=== PATIENT | female | born 1955 | race Caucasian/White ===

== ENCOUNTER 2020-06-17 19:24 | Inpatient (IN) | payer MEDICARE, OTHER ==
[~2020-06-17] VITALS: Ht 165.1 cm; Wt 59.0 kg
[2020-06-17 19:58] LABS: BASOPHILS % (AUTO) 0.3 % (0.0-2.0); EOSINOPHILS % (AUTO) 0.6 % (0.0-7.0); HEMATOCRIT 43.9 % (31.2-41.9); LYMPHOCYTES # (AUTO) 1.5 K/uL (20.0-40.0); LYMPHOCYTES % (AUTO) 22.8 % (20.5-51.5); MEAN CORPUSCULAR HGB CONC 34 g/dL (32.3-35.6); MEAN CORPUSCULAR VOLUME 96.2 fL (75.5-95.3); MONOCYTES # (AUTO) 0.7 K/uL (2.0-10.0); MONOCYTES % (AUTO) 10.1 % (0.0-11.0); NEUTROPHILS # (AUTO) 4.4 K/uL (1.8-8.9); NEUTROPHILS % (AUTO) 66.2 % (38.5-71.5); PLATELET COUNT (AUTO) 357 K/uL (179-408); RED BLOOD CELL COUNT(AUTO) 4.56 MIL/uL (3.63-4.92); WHITE BLOOD COUNT (AUTO) 6.7 K/uL (3.8-11.8)
[2020-06-17 20:08] LABS: *BILIRUBIN,URIN NEGATIVE (NEGATIVE); *CLARITY,URINE CLEAR (CLEAR); *COLOR,URINE YELLOW (YELLOW); *KETONES,URINE NEGATIVE (NEGATIVE); *UROBILINOGEN,URINE 0.2 E.U./dl (NORMAL); LEUKOCYTE ESTERASE ,URINE 1+ (NEGATIVE); NITRITE, URINE NEGATIVE (NEGATIVE); UGLUCOSE NEGATIVE (NEGATIVE)
[2020-06-17 20:10] LABS: ETHANOL < 3 MG/DL (0-0)
[2020-06-17 20:13] LABS: ALANINE AMINOTRANSFERASE 28 U/L (14-59); ALKALINE PHOSPHATASE 78 U/L (50-136); ASPARTATE AMINOTRANSFERASE 17 U/L (15-37); BILIRUBIN,DIRECT 0.2 mg/dL (0.0-0.2); BILIRUBIN,TOTAL 0.6 mg/dL (0.2-1.0); CARBON DIOXIDE 28 mmol/L (21-32); CHLORIDE 101 mmol/L (98-107); CREATININE 0.8 mg/dL (0.6-1.3); GLUCOSE 101 mg/dL (74-106); POTASSIUM 3.8 mmol/L (3.5-5.1); TOTAL PROTEIN, SERUM 7.4 g/dL (6.4-8.2); UREA NITROGEN, BLOOD 14 mg/dL (7-18)
[2020-06-17] MEDS ORDERED: SERT50TA PO (20:15)
[2020-06-17] MEDS ORDERED: LISI-607 PO (20:15)
[2020-06-17] MEDS ORDERED: LURA40TA PO (20:15)
[2020-06-17] MEDS ORDERED: ATOR20TA PO (20:15)
[2020-06-17 20:20] LABS: ACETAMINOPHEN < 2.0 ug/mL (10-30)
[2020-06-17 20:23] LABS: *BLOOD, URINE TRACE INTACT (NEGATIVE)
[2020-06-17] MEDS ORDERED: CLONIDINE HCL 0.1 MG TABLET ONE (20:28)
[2020-06-17 20:30] LABS: *AMPHETAMINE, URINE NEGATIVE (NEGATIVE); *CANNABINOID, URINE NEGATIVE (NEGATIVE); *COCCAINE, URINE NEGATIVE (NEGATIVE); *OPIATE, URINE NEGATIVE (NEGATIVE); *PHENCYCLIDINE SCREEN,URINE NEGATIVE (NEGATIVE)
[2020-06-17] MEDS ORDERED: CLONIDINE HCL 0.1 MG TABLET PO ONE (20:30)
[2020-06-17 20:41] LABS: THYROID STIMULATING HORMONE 3.408 mIU/mL (0.358-3.740)
[2020-06-17] MEDS ORDERED: TEMAZEPAM 7.5 MG CAPSULE PO PRN (21:30)
[2020-06-17] MEDS ORDERED: BLOOD SUGAR DIAGNOSTIC 1 EACH STRIP VI ONE (21:30)
[2020-06-17] MEDS ORDERED: MAGNESIUM HYDROXIDE 30 ML LIQUID UDC PO PRN (21:30)
[2020-06-17] MEDS ORDERED: ACETAMINOPHEN 325 MG TABLET PO PRN (21:30)
[2020-06-17] MEDS ORDERED: MAG HYDROX/AL HYDROX/SIMETH 30 ML LIQUID UDC PO PRN (21:30)
[2020-06-17 21:39] VITALS: BP 155/84
[2020-06-17 22:00] LABS: BACTERIA,URINE MANY /HPF (NONE SEEN); SQUAMOUS EPITHELIAL CELL,UR FEW /HPF (NONE SEEN)
[2020-06-17] MEDS ORDERED: hydrALAZINE HCL 25 MG TABLET PO PRN (22:30)
[2020-06-17] MEDS: LORAZEPAM 1 MG TABLET PO PRN (22:32)
[2020-06-17] MEDS: METOPROLOL TARTRATE 25 MG TABLET PO SCH (23:32)
[2020-06-18 07:30] VITALS: BP 106/59
[2020-06-18 08:03] LABS: BASOPHILS % (AUTO) 0.8 % (0.0-2.0); EOSINOPHILS # (AUTO) 0.1 K/uL (0.0-0.7); EOSINOPHILS % (AUTO) 1.7 % (0.0-7.0); HEMATOCRIT 38.4 % (31.2-41.9); HEMOGLOBIN 13.2 g/dL (10.9-14.3); LYMPHOCYTES # (AUTO) 1.6 K/uL (20.0-40.0); LYMPHOCYTES % (AUTO) 28.6 % (20.5-51.5); MEAN CORPUSCULAR HEMOGLOBIN 33.1 uug (24.7-32.8); MEAN CORPUSCULAR HGB CONC 34 g/dL (32.3-35.6); MEAN CORPUSCULAR VOLUME 96.4 fL (75.5-95.3); MONOCYTES # (AUTO) 0.7 K/uL (2.0-10.0); MONOCYTES % (AUTO) 12.5 % (0.0-11.0); NEUTROPHILS # (AUTO) 3.2 K/uL (1.8-8.9); NEUTROPHILS % (AUTO) 56.4 % (38.5-71.5); PLATELET COUNT (AUTO) 308 K/uL (179-408); RED BLOOD CELL COUNT(AUTO) 3.99 MIL/uL (3.63-4.92); WHITE BLOOD COUNT (AUTO) 5.7 K/uL (3.8-11.8)
[2020-06-18 08:06] LABS: BILIRUBIN,TOTAL 0.6 mg/dL (0.2-1.0); CREATININE 0.9 mg/dL (0.6-1.3); MAGNESIUM 1.9 mg/dL (1.8-2.4); PHOSPHOROUS 3.6 mg/dL (2.5-4.9)
[2020-06-18] MEDS: NITROFURANTOIN/NITROFURAN MAC 100 MG CAPSULE PO SCH ×2 (08:30→20:18)
[2020-06-18] MEDS: METOPROLOL TARTRATE 25 MG TABLET PO SCH ×2 (08:31→20:18)
[2020-06-18] MEDS: LISINOPRIL 5 MG TABLET PO SCH (08:31)
[2020-06-18 16:00] VITALS: BP 125/66
[2020-06-18 20:00] VITALS: BP 117/67
[2020-06-18] MEDS: ATORVASTATIN 20 MG TABLET PO SCH (20:17)
[2020-06-18] MEDS: LORAZEPAM 1 MG TABLET PO PRN (21:55)
[2020-06-19 07:30] VITALS: BP 133/74
[2020-06-19] MEDS: LISINOPRIL 5 MG TABLET PO SCH (08:19)
[2020-06-19] MEDS: NITROFURANTOIN/NITROFURAN MAC 100 MG CAPSULE PO SCH ×2 (08:19→20:32)
[2020-06-19] MEDS: METOPROLOL TARTRATE 25 MG TABLET PO SCH ×2 (08:19→20:35)
[2020-06-19] MEDS: risperiDONE 1 MG TABLET PO SCH ×2 (08:19→20:32)
[2020-06-19 15:20] VITALS: BP 110/61
[2020-06-19 20:00] VITALS: BP 115/56
[2020-06-19] MEDS: ATORVASTATIN 20 MG TABLET PO SCH (20:28)
[2020-06-19] MEDS: MIRTAZAPINE 15 MG TABLET PO SCH (20:32)
[2020-06-19 20:36] VITALS: BP 120/69
[2020-06-20 07:30] VITALS: BP 118/62
[2020-06-20] MEDS: risperiDONE 1 MG TABLET PO SCH ×2 (08:28→21:00)
[2020-06-20] MEDS: NITROFURANTOIN/NITROFURAN MAC 100 MG CAPSULE PO SCH ×2 (08:28→20:14)
[2020-06-20] MEDS: METOPROLOL TARTRATE 25 MG TABLET PO SCH ×2 (08:29→20:15)
[2020-06-20] MEDS: LISINOPRIL 5 MG TABLET PO SCH (08:29)
[2020-06-20 16:00] VITALS: BP 133/75
[2020-06-20 20:00] VITALS: BP 115/63
[2020-06-20] MEDS: ATORVASTATIN 20 MG TABLET PO SCH (20:14)
[2020-06-20] MEDS: MIRTAZAPINE 15 MG TABLET PO SCH (21:00)
[2020-06-21 07:30] VITALS: BP 118/63
[2020-06-21] MEDS: NITROFURANTOIN/NITROFURAN MAC 100 MG CAPSULE PO SCH ×2 (08:20→20:15)
[2020-06-21] MEDS: risperiDONE 1 MG TABLET PO SCH ×2 (08:21→20:15)
[2020-06-21] MEDS: LISINOPRIL 5 MG TABLET PO SCH (08:21)
[2020-06-21] MEDS: METOPROLOL TARTRATE 25 MG TABLET PO SCH ×2 (08:23→20:15)
[2020-06-21 15:29] VITALS: BP 149/73
[2020-06-21 20:13] VITALS: BP 160/82
[2020-06-21] MEDS: TRAZODONE 50 MG TABLET PO SCH (20:15)
[2020-06-21] MEDS: ATORVASTATIN 20 MG TABLET PO SCH (20:15)
[2020-06-22 07:30] VITALS: BP 106/49
[2020-06-22] MEDS: NITROFURANTOIN/NITROFURAN MAC 100 MG CAPSULE PO SCH ×2 (08:21→20:33)
[2020-06-22] MEDS: risperiDONE 1 MG TABLET PO SCH ×2 (08:22→20:33)
[2020-06-22] MEDS: LISINOPRIL 5 MG TABLET PO SCH (08:23)
[2020-06-22] MEDS: METOPROLOL TARTRATE 25 MG TABLET PO SCH ×2 (08:23→20:35)
[2020-06-22 16:32] VITALS: BP 138/75
[2020-06-22 20:00] VITALS: BP 108/60
[2020-06-22] MEDS: TRAZODONE 50 MG TABLET PO SCH (20:33)
[2020-06-22] MEDS: ATORVASTATIN 20 MG TABLET PO SCH (20:33)
[2020-06-23 07:30] VITALS: BP 134/67
[2020-06-23] MEDS: NITROFURANTOIN/NITROFURAN MAC 100 MG CAPSULE PO SCH (08:12)
[2020-06-23] MEDS: METOPROLOL TARTRATE 25 MG TABLET PO SCH ×2 (08:12→21:52)
[2020-06-23] MEDS: risperiDONE 1 MG TABLET PO SCH ×2 (08:12→21:51)
[2020-06-23] MEDS: LISINOPRIL 5 MG TABLET PO SCH (08:13)
[2020-06-23 16:08] VITALS: BP 105/52
[2020-06-23 20:00] VITALS: BP 110/63
[2020-06-23] MEDS: ATORVASTATIN 20 MG TABLET PO SCH (21:51)
[2020-06-23] MEDS: TRAZODONE 50 MG TABLET PO SCH (21:51)
[2020-06-24 07:30] VITALS: BP 97/47
[2020-06-24] MEDS: LISINOPRIL 5 MG TABLET PO SCH (09:00)
[2020-06-24] MEDS: METOPROLOL TARTRATE 25 MG TABLET PO SCH ×2 (09:00→20:15)
[2020-06-24] MEDS: risperiDONE 1 MG TABLET PO SCH ×2 (09:28→20:14)
[2020-06-24 16:00] VITALS: BP 116/69
[2020-06-24 20:00] VITALS: BP 136/68
[2020-06-24] MEDS: TRAZODONE 50 MG TABLET PO SCH (20:14)
[2020-06-24] MEDS: ATORVASTATIN 20 MG TABLET PO SCH (20:14)
[2020-06-25 07:30] VITALS: BP 127/69
[2020-06-25] MEDS: LISINOPRIL 5 MG TABLET PO SCH (08:37)
[2020-06-25] MEDS: METOPROLOL TARTRATE 25 MG TABLET PO SCH ×2 (08:37→20:20)
[2020-06-25] MEDS: risperiDONE 1 MG TABLET PO SCH ×2 (08:37→20:20)
[2020-06-25 15:12] VITALS: BP 105/59
[2020-06-25 19:45] VITALS: BP 133/68
[2020-06-25] MEDS: TRAZODONE 50 MG TABLET PO SCH (20:20)
[2020-06-25] MEDS: ATORVASTATIN 20 MG TABLET PO SCH (20:20)
[2020-06-26 07:30] VITALS: BP 132/69
[2020-06-26] MEDS: LISINOPRIL 5 MG TABLET PO SCH (08:23)
[2020-06-26] MEDS: risperiDONE 1 MG TABLET PO SCH ×2 (08:23→21:43)
[2020-06-26] MEDS: METOPROLOL TARTRATE 25 MG TABLET PO SCH ×2 (08:24→21:48)
[2020-06-26 16:00] VITALS: BP 122/66
[2020-06-26 20:14] VITALS: BP 130/72
[2020-06-26] MEDS: ATORVASTATIN 20 MG TABLET PO SCH (21:43)
[2020-06-26] MEDS: TRAZODONE 50 MG TABLET PO SCH (21:43)
[2020-06-27 07:30] VITALS: BP 119/64
[2020-06-27] MEDS: LISINOPRIL 5 MG TABLET PO SCH (08:24)
[2020-06-27] MEDS: risperiDONE 1 MG TABLET PO SCH ×2 (08:24→21:31)
[2020-06-27] MEDS: METOPROLOL TARTRATE 25 MG TABLET PO SCH ×2 (08:25→21:30)
[2020-06-27 16:12] VITALS: BP 99/49
[2020-06-27 20:04] VITALS: BP 127/67
[2020-06-27] MEDS: TRAZODONE 50 MG TABLET PO SCH (21:30)
[2020-06-27] MEDS: ATORVASTATIN 20 MG TABLET PO SCH (21:31)
[2020-06-28 07:30] VITALS: BP 117/67
[2020-06-28] MEDS: METOPROLOL TARTRATE 25 MG TABLET PO SCH ×2 (08:21→21:49)
[2020-06-28] MEDS: risperiDONE 1 MG TABLET PO SCH ×2 (08:21→21:48)
[2020-06-28] MEDS: LISINOPRIL 5 MG TABLET PO SCH (08:22)
[2020-06-28 15:10] VITALS: BP 107/51
[2020-06-28 19:45] VITALS: BP 110/80
[2020-06-28] MEDS: ATORVASTATIN 20 MG TABLET PO SCH (21:48)
[2020-06-28] MEDS: TRAZODONE 50 MG TABLET PO SCH (21:48)
[2020-06-29 07:30] VITALS: BP_SYST 134
[2020-06-29] MEDS: METOPROLOL TARTRATE 25 MG TABLET PO SCH (08:27)
[2020-06-29] MEDS: risperiDONE 1 MG TABLET PO SCH (08:27)
[2020-06-29 08:28] VITALS: BP 134/57
[2020-06-29] MEDS: LISINOPRIL 5 MG TABLET PO SCH (08:28)
== END 2020-06-29 13:15 | disposition home or self-care (01) | DRG 885 ==
LOC: ER 19:24 → GPS 21:18
PROVIDERS: ADMIT Psychiatry & Neurology Psychiatry; ATTEND Nurse Practitioner Acute Care
DX: F31.5 Bipolar disorder, current episode depressed, severe, with psychotic features (principal); N39.0 Urinary tract infection, site not specified; F23 Brief psychotic disorder; E78.5 Hyperlipidemia, unspecified; Z20.828 Contact with and (suspected) exposure to other viral communicable diseases; I10 Essential (primary) hypertension; Z73.6 Limitation of activities due to disability; F19.11 Other psychoactive substance abuse, in remission; F10.21 Alcohol dependence, in remission
CPT/HCPCS: 36415; 71045; 83735; 84100; 84443; 85025; 87086; 93005; A4663; G0480